=== PATIENT | female | born 1975 | race Caucasian/White ===

== ENCOUNTER 2018-09-21 20:20 | Emergency (ER) | payer OTHER ==
[~2018-09-21] VITALS: Ht 162.6 cm; Wt 78.7 kg
[2018-09-21 20:40] VITALS: Ht 162.6 cm; Wt 78.7 kg
[2018-09-21] MEDS ORDERED: KETOROLAC 30 MG INJ IM STA (20:56)
[2018-09-21] MEDS ORDERED: CYCLOBENZAPRINE 10 MG TAB PO ONE (21:00)
--- NOTE | 2018-09-21 21:04 | ERD ---
ER Documentation Chief Complaint Chief Complaint slipped and fell backwads x 30 min ago, c/o pain on back/buttocks/ HPI This is a 43-year-old female presents emergency department with complaints of lower back pain, pelvic pain after falling 30 minutes ago. Stated that she was walking, slipped, fell backwards, landed on her lower back to a concrete floor. LMP: Stated that it is today. G2, . Denies headache, head injury, loss of consciousness, dizziness, neck pain, neck stiffness, throat pain, difficulty swallowing, difficulty breathing lying flat, shoulder pain, chest pain, abdominal pain, nausea, vomiting, constipation, diarrhea, urinary symptoms, or possibility being , loss of bowel and bladder control, difficulty walking due to pain, numbness or tingling sensation, calf pain, recent travel, recent major surgery in the last 3 weeks, calf pain, recent long travel, recent exposure to any illness, recent antibiotic use in the last 3 months, fever, chills, seizures. Past medical history: Denies. Surgical history: Denies. Social: Denies smoking, use of alcoholic beverages, use of illegal drugs. ROS All systems reviewed and are negative except as per history of present illness. Medications Home Meds Active Scripts Cyclobenzaprine Hcl* (Cyclobenzaprine Hcl*) 10 Mg Tablet, 10 MG PO TID PRN for MUSCLE SPASMS, #15 TAB Prov:HIGINIOILABANELISEOAR F 09/21/18 Ibuprofen* (Motrin*) 800 Mg Tab, 800 MG PO Q6H PRN for PAIN AND OR ELEVATED TEMP, #30 TAB Prov:PASILABANELIESOAR F 09/21/18 Allergies Allergies: Coded Allergies: No Known Drug Allergies (Verified Allergy, Unknown, 09/21/18) PMhx/Soc Medical and Surgical Hx: pt denies Medical Hx, pt denies Surgical Hx Hx Alcohol Use: No Hx Substance Use: No Hx Tobacco Use: No Smoking Status: Never smoker Physical Exam Vitals Vital Signs Date Temp Pulse Resp B/P (MAP) Pulse Ox O2 O2 Flow FiO2 Time Delivery Rate 09/21/18 98.9 74 18 135/78 99 Room Air 23:41 (97) 09/21/18 98.9 76 18 149/77 99 20:40 (101) Physical Exam Const: No acute distress Head: Atraumatic. Normocephalic. Scalp is intact. No deformities. Eyes: Normal Conjunctiva ENT: Normal External Ears, Nose and Mouth. Neck: Full range of motion. No meningismus. C-spine is in midline with good and full range of motion and has no swelling/deformity/bulging/point of tenderness. Resp: Clear to auscultation bilaterally Cardio: Regular rate and rhythm, no murmurs Abd: Soft, non tender, non distended. Normal bowel sounds. No abdominal tenderness. Skin: No petechiae or rashes Back: No midline or flank tenderness. T-spine is in midline with good and full range of motion and has no swelling/deformity/bulging/point of tenderness. L-spine is in midline with no swelling/deformity/bulging, but has pain to range of motion. Sacral area has tenderness to palpation. No saddle anesthesia. Able to bear weight on left lower extremity. Able to bear weight on right lower extremity. Positive right straight leg test. Positive right cross straight leg test. Negative left straight leg test. Negative left cross straight leg test. Bilateral hips are stable and unremarkable. Ext: No cyanosis, or edema. Symmetrical knees. No calf tenderness bilater ally. Capillary refills to bilateral lower extremities are less than 2 seconds. No neurovascular deficit. Ambulatory with steady gait. Neur: Awake and alert. Sensation is intact. No neurological deficits. Psych: Normal Mood and Affect Results 24 hrs Laboratory Tests Test 09/21/18 21:20 09/21/18 21:21 POC Beta HCG, Qualitative NEGATIVE Bedside Urine pH (LAB) 6.5 Bedside Urine Protein (LAB) 1+ Bedside Urine Glucose (UA) Negative Bedside Urine Ketones (LAB) Trace Bedside Urine Blood 3+ Bedside Urine Nitrite (LAB) Negative Bedside Urine Leukocyte Esterase (L Negative Current Medications Medications Dose Sig/Patricia Start Time Status Last (Trade) Ordered Route PRN Stop Time Admin Dose Reason Admin Ketorolac 30 mg ONCE STAT 09/21/18 DC 09/21/18 Tromethamine IM 20:56 21:24 (Toradol) 09/21/18 20:59 10 mg ONCE ONCE 09/21/18 DC 09/21/18 Cyclobenzapri PO 21:00 21:24 ne HCl 09/21/18 21:01 (Flexeril) Procedures/MDM Diagnostic tests: POC urine : Negative. X-ray of the L-spine: Normal lumbar spine radiographs. X-ray of the coccyx/sacral area: Unremarkable x-ray examination of the sacrum and coccyx. X-ray of the pelvis: No fracture or dislocation of the pelvis. Treatment: Toradol IM. Flexeril p.o. Re-evaluation: Denies chest pain, back pain, abdominal pain, pelvic pain. No abdominal tenderness. No CVA tenderness. No saddle anesthesia. No neurovascular deficit. No neurological deficit. Ambulatory with steady gait. Stated that she feels much better this time and that she is ready to go home. Stated that she is comfortable to go home. Differential diagnosis I have low suspicion for cauda equina syndrome, pelvic fracture, hip fracture, L-spine fracture/subluxation, nephrolithiasis, pyelonephritis, obstructing kidney stones, septic stone, DVT, compartment syndrome. Final diagnosis: Back injury. Prescription: Motrin. Flexeril. Follow-up with PCP in the next 24-48 hours. Come back here in the emergency department for any new symptoms or any worsening symptoms. All questions and concerns were answered. Patient and family members verbalized understanding and agreed with plan of care. Hemodynamically stable on discharge. Departure Diagnosis: Primary Impression: Fall Additional Impressions: Lower back injury Back injury Back pain Back contusion Condition: Stable Additional Instructions: Follow-up with PCP in the next 24-48 hours. Come back here in the emergency department for any new symptoms or any worsening symptoms. SOUMYA ALVAREZ Sep 21, 2018 21:04
[2018-09-21] MEDS ORDERED: IBUP800T48 PO (23:24)
[2018-09-21] MEDS ORDERED: CYCL10TA7 PO (23:25)
[2018-09-21 23:41] VITALS: BP 135/78; PULSE 74; RESP 18
== END 2018-09-21 23:42 | disposition home or self-care (01) ==
LOC: FTE 20:20
DX: S30.0XXA Contusion of lower back and pelvis, initial encounter (principal); R10.2 Pelvic and perineal pain; W01.0XXA Fall on same level from slipping, tripping and stumbling without subsequent striking against object, initial encounter; Y92.9 Unspecified place or not applicable
CPT/HCPCS: 72100; 72170; 72220; 81003; 81025; 96372; J1885; Z7502; Z7610